=== PATIENT | male | born 1975 | race Caucasian/White ===

== ENCOUNTER 2016-07-03 20:32 | Emergency (ER) | payer BC ==
[2016-07-03] MEDS ORDERED: TETRACAINE HCL 0.5% OPH SOLN 2 ML OU ONE (20:52)
--- NOTE | 2016-07-03 20:58 | ER Document Report ---
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, stepped in and out of the room briefly without a welding mask or glasses on, and today it "all caught up with me", patient reports bilateral eye pain, unable to open his eyes , denies injury or pain elsewhere - Related Data Allergies/Adverse Reactions: morphine [Morphine] Allergy (Severe, Verified 05/07/12 09:35) Stopped breathing Past Medical History - General Information source: Patient - Social History Smoking Status: Current Every Day Smoker Frequency of alcohol use: None Drug Abuse: None Family History: Reviewed & Not Pertinent Pulmonary Medical History: Reports: Hx COPD Renal/ Medical History: Denies: Hx Peritoneal Dialysis Past Surgical History: Reports: Hx Cholecystectomy - Immunizations Hx Diphtheria, Pertussis, Tetanus Vaccination: No Review of Systems - Review of Systems Constitutional: No symptoms reported EENT: Eye pain, Tearing Cardiovascular: No symptoms reported Respiratory: No symptoms reported Gastrointestinal: No symptoms reported Genitourinary: No symptoms reported Male Genitourinary: No symptoms reported Musculoskeletal: No symptoms reported Skin: No symptoms reported Hematologic/Lymphatic: No symptoms reported Neurological/Psychological: No symptoms reported -: Yes All other systems reviewed and negative Physical Exam - Vital signs Vitals: Temp Pulse Resp BP Pulse Ox 98.1 F 81 20 154/103 H 99 07/03/16 20:38 07/03/16 20:38 07/03/16 20:38 07/03/16 20:38 07/03/16 20:38 Interpretation: Hypertensive - Notes Notes: - General General appearance: Appears well, Alert In distress: None - HEENT Head: Normocephalic, Atraumatic Eyes: Injected, tearing Conjunctiva: Normal Extraocular movements intact: Yes Eyelashes: Normal Pupils: PERRL - Respiratory Respiratory status: No respiratory distress - Cardiovascular Rhythm: Regular - Abdominal Inspection: Normal - Back Back: Normal - Extremities General upper extremity: Normal inspection General lower extremity: Normal inspection - Neurological Neuro grossly intact: Yes Orientation: AAOx4 [place] Coma Scale Eye Opening: Spontaneous [place] Coma Scale Verbal: Oriented [place] Coma Scale Motor: Obeys Commands [place] Coma Scale Total: 15 - Psychological Associated symptoms: Normal affect, Normal mood - Skin Skin Temperature: Warm Skin Moisture: Dry Skin Color: Normal Course - Re-evaluation Re-evalutation: 07/03/16 21:57 Patient reports acceptable relief of pain at this point in time, he is able to open his eyes and clearly see me, he was given instructions for follow-up, Polytrim eyedrops for home use, Vicodin dose pack, advised to return if symptoms worsen, patient acknowledges understanding and agreement with this plan - Vital Signs Vital signs: Temp Pulse Resp BP Pulse Ox 98.1 F 81 20 154/103 H 99 07/03/16 20:38 07/03/16 20:38 07/03/16 20:38 07/03/16 20:38 07/03/16 20:38 Discharge - Discharge Clinical Impression: Welders' flash Qualifiers: Laterality: bilateral Qualified Code(s): H16.133 - Photokeratitis, bilateral Condition: Stable Disposition: HOME, SELF-CARE Instructions: Tetanus Immunization Given ([facility]), [facility] ([facility]) Additional Instructions: Follow-up with an fall internship within the next week. Return to the emergency room immediately if symptoms worsen or any additional concerns. Prescriptions: Oxycodone HCl/Acetaminophen [Percocet 5-325 mg Tablet] 1 - 2 tab PO ASDIR PRN # 15 tablet PRN Reason:
[2016-07-03] MEDS ORDERED: POLYMYXIN B SULFATE/TMP OPH SOLN 10 ML OU ONE (21:08)
[2016-07-03] MEDS ORDERED: OXYCODONE-ACETAMINOPHEN 5-325 MG TABLET PO ONE (21:08)
[2016-07-03] MEDS ORDERED: DIPH/PERTUSS(ACELL)/TETANUS VAC/PF 0.5 ML SYR (>=10YO) IM ONE (21:08)
[2016-07-03] MEDS ORDERED: HYDROCODONE/ACETAMINOPHEN 5-325 MG 6 TAB/DSPK PO PRN (21:57)
[2016-07-03 22:28] VITALS: BP 136/88
== END 2016-07-03 22:28 | disposition home or self-care (01) ==
LOC: ER 20:32
DX: H16.133 Photokeratitis, bilateral (principal); H57.13 Ocular pain, bilateral; F17.210 Nicotine dependence, cigarettes, uncomplicated
CPT/HCPCS: 99283; 90715; J3490

== ENCOUNTER → 2018-12-23 | Outpatient (CLI) | payer BC ==
--- NOTE | 2018-12-23 09:22 | RADIOLOGY REPORT (SQ) ---
EXAM DESCRIPTION: MRI RT LOWER EXTREMITY WITHOUT COMPLETED DATE/TIME: 12/23/2018 8:46 am REASON FOR STUDY: M79.671 PAIN IN RIGHT FOOT M79.671 PAIN IN RIGHT FOOT COMPARISON: None. TECHNIQUE: Right ankle images acquired and stored on PACS. Multiplanar images include fat sensitive sequences as T1, fluid sensitive sequences as FST2/STIR, cartilage sensitive sequences as FSPD, and g radient echo sequences. LIMITATIONS: None. FINDINGS: There is trace fluid in the retrocalcaneal bursa on sagittal image 9, coronal image 26 and axial image 14. Along the deep aspect of the distal achilles tendon near its calcaneal attachment, focal increased si gnal is present from tendinopathy, measuring about 2.5 cm in greatest craniocaudad length. This is b est shown on coronal image 28, axial images 13-19, and sagittal image 9. Remainder of the visualized achilles tendon is intact. Please note that the musculotendinous junction is not included in the fi eld of view. No calcaneal marrow edema at the Achilles attachment is present. BONE MARROW: No alteration of signal to suggest marrow replacement or edema. No occult fracture. No l arge osteophytes. EFFUSIONS: No subtalar or tibiotalar effusions. No loose bodies. OSSEOUS ARTICULATIONS: Normal tibiotalar, subtalar, talonavicular and calcaneocuboid joints. TALAR DOME AND TIBIAL PLAFOND: Normal cartilage. No osteochondral defect. ACHILLES TENDON: As above TIBIALIS ANTERIOR TENDON: Intact without edema at the 1st MT attachment. TIBIALIS POSTERIOR TENDON: Normal morphology and no edema at the navicular attachment. No tendon barrientos th fluid. FLEXOR HALLUCIS LONGUS AND FLEXOR DIGITORUM TENDONS: Normal morphology and no tendon sheath fluid. No edema of the os trigonum. PERONEUS LONGUS AND BREVIS TENDON: Normal morphology and no tendon sheath fluid. No subluxation. ATFL, CFL, PTFL: Intact. No thickening or signal alteration. No josé-ligamentous fluid. DELTOID LIGAMENT: Visualized components intact. TARSAL TUNNEL: No masses. No muscle atrophy. SINUS TARSI: No fluid. No reactive marrow edema or erosions. PLANTAR FASCIA: No signal alteration or tear. ADJACENT SOFT TISSUES: No masses. OTHER: No other significant finding. IMPRESSION: Distal Achilles tendinopathy TECHNICAL DOCUMENTATION: JOB ID: [id number] [employer]- All Rights Reserved Reading location - IP/workstation name: [email or web address]
== END ==
LOC: RAD 08:09
PROVIDERS: ATTEND Physician Assistant
DX: M79.671 Pain in right foot (principal)

== ENCOUNTER 2019-08-07 13:01 | Emergency (ER) | payer BC ==
[2019-08-07] MEDS ORDERED: ASPIRIN 81 MG TABLET, CHEWABLE PO ONE (13:58)
--- NOTE | 2019-08-07 13:58 | ER Document Report ---
ED Medical Screen (RME) - General Chief Complaint: Chest Pain Stated Complaint: CHEST PAIN,DIFFICULTY BREATHING Time Seen by Provider: 08/07/19 13:53 Primary Care Provider: RICH ESTRADA PA [Primary Care Provider] - Follow up as needed Mode of Arrival: Wheelchair Information source: Patient Notes: 43-year-old male presented to ED for complaint of right-sided chest pain that goes all the way through to his back states the pain started on the right side now it is on both sides goes through to the back. He states he does not have a gallbladder. Chest pain started this morning shortness of breath started last night. He states it woke him up during the night he thought it was gas tried to go to work became very short of breath worse and is now in the emergency room. He states when he takes a deep breath the pain is a lot worse. He states he takes shallow breaths the pain is not quite as bad. He has not had any cough or congestion. Denies any recent travel. He states he has had calf and leg cramps but not pain. He is diagnosed with blood pressure. He states his dad had his first heart attack at 53. Smokes pack and a half a day states drinks maybe a sixpack a year no illicit drugs. I have greeted and performed a rapid initial assessment of this patient. A comprehensive ED assessment and evaluation of the patient, analysis of test results and completion of medical decision making process will be conducted by an additional ED providers. TRAVEL OUTSIDE OF THE [place] IN LAST 30 DAYS: No - Related Data Allergies/Adverse Reactions: morphine [Morphine] Allergy (Severe, Verified 08/07/19 13:52) Stopped breathing Past Medical History Pulmonary Medical History: Reports: Hx COPD Renal/ Medical History: Denies: Hx Peritoneal Dialysis Past Surgical History: Reports: Hx Cholecystectomy, Hx Orthopedic Surgery - back - Immunizations Immunizations up to date: No Hx Diphtheria, Pertussis, Tetanus Vaccination: No Physical Exam - Vital signs Vitals: Temp Pulse Resp BP Pulse Ox 98.7 F 96 19 157/94 H 95 08/07/19 13:12 08/07/19 13:12 08/07/19 13:12 08/07/19 13:12 08/07/19 13:12 Course - Vital Signs Vital signs: Temp Pulse Resp BP Pulse Ox 98.7 F 96 19 157/94 H 95 08/07/19 13:12 08/07/19 13:12 08/07/19 13:12 08/07/19 13:12 08/07/19 13:12 Doctor's Discharge - Discharge Referrals: RICH ESTRADA PA [Primary Care Provider] - Follow up as needed
[2019-08-07 14:32] LABS: ABSOLUTE BASOPHILS # (AUTO) 0.2 10^3/uL (0.0-0.2); ABSOLUTE EOSINOPHILS # (AUTO) 0.4 10^3/uL (0.0-0.6); ABSOLUTE LYMPHOCYTES (AUTO) 3.4 10^3/uL (0.5-4.7); ABSOLUTE MONOCYTES (AUTO) 1.2 10^3/uL (0.1-1.4); ABSOLUTE NEUT (AUTO) 8.7 10^3/uL (1.7-8.2); BASOPHILS % (AUTO) 1.2 % (0-2); EOSINOPHILS % (AUTO) 3.2 % (0-6); HEMATOCRIT 44.7 % (37.9-51.0); HEMOGLOBIN 15.5 g/dL (13.5-17.0); LYMPHOCYTES % (AUTO) 24.8 % (13-45); MEAN CORPUSCULAR HEMOGLOBIN 32.8 pg (27.0-33.4); MEAN CORPUSCULAR HGB CONC 34.6 g/dL (32.0-36.0); MEAN CORPUSCULAR VOLUME 95 fl (80-97); MONOCYTES % (AUTO) 8.5 % (3-13); PLATELET COUNT 240 10^3/uL (150-450); RED BLOOD COUNT 4.72 10^6/uL (4.35-5.55); RED CELL DISTRIBUTION WIDTH 13.6 % (11.5-14.0); SEGMENTED NEUTROPHILS % (AUTO) 62.3 % (42-78); TOTAL CELLS COUNTED % (AUTO) 100 %; WHITE BLOOD COUNT 13.9 10^3/uL (4.0-10.5)
--- NOTE | 2019-08-07 14:41 | RADIOLOGY REPORT (SQ) ---
EXAM DESCRIPTION: CHEST 2 VIEWS COMPLETED DATE/TIME: 08/07/2019 2:23 pm REASON FOR STUDY: Chest pain shortness of breath COMPARISON: PA and lateral views of the chest from 05/07/2012. EXAM PARAMETERS: NUMBER OF VIEWS: Two views. TECHNIQUE: PA and lateral views of the chest were obtained.. RADIATION DOSE: NA LIMITATIONS: none FINDINGS: LUNGS AND PLEURA: Acute asymmetric parenchymal opacities in the right lower lobe. The rig ht costophrenic sulcus is blunted. There is no pneumothorax. MEDIASTINUM AND HILAR STRUCTURES: No mediastinal or hilar contour abnormality. HEART AND VASCULAR STRUCTURES: The cardiac silhouette and pulmonary vasculature are within normal coello its. BONES: No acute findings. HARDWARE: None in the chest. OTHER: No other finding. IMPRESSION: Acute asymmetric parenchymal opacities in the right lower lobe. Correlate with clinical findings to exclude a pneumonia. TECHNICAL DOCUMENTATION: JOB ID: [id number] 2010 [employer]- All Rights Reserved Reading location - IP/workstation name: [email or web address]
[2019-08-07 14:44] LABS: ALBUMIN 4.1 g/dL (3.5-5.0); ALKALINE PHOSPHATASE 82 U/L (38-126); ANION GAP 8 (5-19); ASPARTATE AMINO TRANSFERASE 26 U/L (17-59); BILIRUBIN,DIRECT 0.1 mg/dL (0.0-0.4); BILIRUBIN,TOTAL 0.8 mg/dL (0.2-1.3); BLOOD UREA NITROGEN 14 mg/dL (7-20); CALCIUM 9.1 mg/dL (8.4-10.2); CARBON DIOXIDE 26 mmol/L (22-30); CHLORIDE 104 mmol/L (98-107); GLUCOSE 155 mg/dL (75-110); POTASSIUM 3.9 mmol/L (3.6-5.0); TOTAL PROTEIN 7.5 g/dL (6.3-8.2)
--- NOTE | 2019-08-07 16:19 | ER Document Report ---
Entered by GAGE MEAD SCRIBE 08/07/19 1554 Acting as scribe for:TESSA VERA, ED General - General Chief Complaint: Chest Pain Stated Complaint: CHEST PAIN,DIFFICULTY BREATHING Time Seen by Provider: 08/07/19 13:53 Primary Care Provider: RICH ESTRADA PA [Primary Care Provider] - Follow up as needed Mode of Arrival: Wheelchair Information source: Patient Notes: This 43-year-old male patient presents to the emergency department today with complaints of pain that radiates from his left upper quadrant across the top of his abdomen that began at 0300 this morning. Patient states that this pain has become worse since onset. Patient states his pain is exacerbated with breathing or with movement of his torso. Patient also mentions bilateral calf pain. TRAVEL OUTSIDE OF THE [place] IN LAST 30 DAYS: No - Related Data Allergies/Adverse Reactions: morphine [Morphine] Allergy (Severe, Verified 08/07/19 13:52) Stopped breathing Home Medications: ambien Past Medical History - General Information source: Patient - Social History Smoking Status: Current Every Day Smoker Cigarette use (# per day): Yes Chew tobacco use (# tins/day): No Frequency of alcohol use: None Drug Abuse: None Lives with: Family Family History: CAD, Reviewed & Not Pertinent Patient has suicidal ideation: No Patient has homicidal ideation: No - Past Medical History Cardiac Medical History: Reports: Hx Hypertension Pulmonary Medical History: Reports: Hx COPD Past Surgical History: Reports: Hx Cholecystectomy, Hx Orthopedic Surgery - back - Immunizations Immunizations up to date: No Hx Diphtheria, Pertussis, Tetanus Vaccination: No Review of Systems - Review of Systems Constitutional: denies: Fever EENT: No symptoms reported Cardiovascular: No symptoms reported Respiratory: See HPI, Hurts to breathe, Short of breath Gastrointestinal: See HPI, Abdominal pain. denies: Diarrhea, Nausea, Vomiting Genitourinary: No symptoms reported Male Genitourinary: No symptoms reported Musculoskeletal: No symptoms reported Skin: No symptoms reported Hematologic/Lymphatic: No symptoms reported Neurological/Psychological: No symptoms reported -: Yes All other systems reviewed and negative Physical Exam - Vital signs Vitals: Temp Pulse Resp BP Pulse Ox 98.7 F 96 19 157/94 H 95 08/07/19 13:12 08/07/19 13:12 08/07/19 13:12 08/07/19 13:12 08/07/19 13:12 - Notes Notes: Physical Exam: General: Alert, appears uncomfortable. HEENT: Normocephalic. Atraumatic. PERRL. Extraocular movements intact. Oropharynx clear. Neck: Supple. Non-tender. Respiratory: No respiratory distress. Clear and equal breath sounds bilaterally. Cardiovascular: Regular rate and rhythm. Abdominal: Mild to moderate right upper quadrant, epigastric, and left upper quadrant tenderness with palpation. Obese. No distension. Normal Bowel Sounds. Back: No gross abnormalities. Extremities: Moves all four extremities. Upper extremities: Normal inspection. Normal ROM. Lower extremities: Normal inspection. No edema. Normal ROM. Neurological: Normal cognition. AAOx4. Normal speech. Psychological: Normal affect. Normal Mood. Skin: Warm. Dry. Normal color. Course - Re-evaluation Re-evalutation: 08/07/19 18:51 MDM 43 year old with cough intermittently for several days and cough that is nonproductive. CXR wiht RLL infiltrate. Considered infarct/ due to this and small effusion. Unfortunatley the Ct was not diagnostic. Sono of legs is negative except perhaps Bakers cyst. He certainly has some Pleuritic pain and the sat is not normal in this nice man. Mid 90's here with me in the room. He likely has LOIS but has refused the test to this point. We discussed inpt treatment and he is opposed to this at this time. We will have him follow up with PCP tomorrow and I discussed return precautions. No work for the next few days. - Vital Signs Vital signs: Temp Pulse Resp BP Pulse Ox 98.7 F 96 20 150/103 H 93 08/07/19 13:12 08/07/19 13:12 08/07/19 17:18 08/07/19 16:57 08/07/19 17:18 - Laboratory Result Diagrams: 08/07/19 14:09 08/07/19 14:09 Laboratory results interpreted by me: 08/07/19 08/07/19 08/07/19 14:09 14:09 14:09 WBC 13.9 H Absolute Neuts (auto) 8.7 H D-Dimer 1.95 H Glucose 155 H - Diagnostic Test Radiology reviewed: Image reviewed, Reports reviewed - EKG Interpretation by Me EKG shows normal: Sinus rhythm Rate: Normal Rhythm: NSR [place]/QRS: Left axis deviation - NSR Nl [place] no st elevation or depression poor r wave progression my interpretation. Discharge - Discharge Clinical Impression: Pleurisy with effusion CAP (community acquired pneumonia) Qualifiers: Laterality: right Lung location: lower lobe of lung Qualified Code(s): J18.9 - Pneumonia, unspecified organism Condition: Good Disposition: HOME, SELF-CARE Instructions: Chest Wall Pain ([facility]), Pleurisy ([facility]), Pneumonia ([facility]) Additional Instructions: See your doctor in follow up tomorrow. Rest. Please return here for any problems or any concerns including but not limited to increasing pain in your chest, coughing up blood or other concerns. Take your medicine as directed. Prescriptions: Amoxicillin/Potassium Clav [Augmentin 875-125 Tablet] 1 tab PO BID #20 tab Forms: Return to Work Referrals: RICH ESTRADA PA [Primary Care Provider] - Follow up as needed I personally performed the services described in the documentation, reviewed and edited the documentation which was dictated to the scribe in my presence, and it accurately records my words and actions.
[2019-08-07] MEDS ORDERED: CEFTRIAXONE 1 GM/D5W RTU 1 GM/50 ML RTUPB IV ONE (16:29)
[2019-08-07] MEDS ORDERED: ONDANSETRON HCL INJ/PF 4 MG/2 ML SDV IV ONE ×2 (16:41→18:07)
[2019-08-07] MEDS ORDERED: FENTANYL CITRATE INJ/PF 100 MCG/2 ML AMPUL IV ONE ×2 (16:41→18:07)
--- NOTE | 2019-08-07 17:40 | RADIOLOGY REPORT (SQ) ---
EXAM DESCRIPTION: CTA CHEST COMPLETED DATE/TIME: 08/07/2019 5:20 pm REASON FOR STUDY: chest pain/ pleurisy COMPARISON: AP chest 08/07/2019 TECHNIQUE: CT scan of the chest performed using helical scanning technique with dynamic intravenous contrast injection. Images reviewed with lung, soft tissue and bone windows. Reconstructed coronal and sagittal MPR images reviewed. Additional 3 dimensional post-processing performed to develop Maximal Intensity Projection images (VA P). All images stored on PACS. All CT scanners at this facility use dose modulation, iterative reconstruction, and/or weight based d osing when appropriate to reduce radiation dose to as low as reasonably achievable (ALARA). [facility]: Dose Right [facility]: CareDose [facility]: Dose Right [facility]: Teradose 4D [facility]: A-TEX CONTRAST TYPE AND DOSE: contrast/concentration: Isovue 350.00 mg/ml; Total Contrast Delivered: 170.2 ml; Total Saline Delivered: 60.0 ml Contrast bolus adequate for pulmonary arteries and aorta. RENAL FUNCTION: GFR > 60. RADIATION DOSE: CT Rad equipment meets quality standard of care and radiation dose reduction [employer] ues were employed. CTDIvol: 28.1 - 65.6 mGy. DLP: 3835 mGy-cm. . LIMITATIONS: Poor opacification of pulmonary arteries. Patient was scanned twice. Limitations of t his study was discussed with Dr. Yousif, 1715 hours 08/07/2019 FINDINGS: LUNGS AND PLEURA: Trace right pleural effusion is new patchy airspace disease at the right carotid space, atelectasis versus pneumonia versus pulmonary infarct. Left lung grossly clear. No left pleural effusion. No pneumothorax. AORTA AND GREAT VESSELS: No aneurysm or thoracic aortic dissection HEART: No pericardial effusion. No significant coronary artery calcifications. PULMONARY ARTERIES: Suboptimal contrast bolus. Pulmonary embolus could not be excluded. Findings di scussed with the emergency room attending physician HILAR AND MEDIASTINAL STRUCTURES: No identified masses or abnormal nodes. HARDWARE: None in the chest. UPPER ABDOMEN: Fatty liver. Hiatal hernia. Clips post cholecystectomy THYROID AND OTHER SOFT TISSUES: No masses. No adenopathy. BONES: No acute or significant finding. 3D MIPS: Confirm above findings. OTHER: No other significant finding. IMPRESSION: Nondiagnostic study for acute pulmonary embolus. There is consolidation and just above the right hemidiaphragm with small right pleural effusion. Dif ferential pneumonia versus atelectasis versus pulmonary infarct. Findings and limitations of this st udy discussed the emergency room attending physician. COMMENT: Quality ID # [id number]: Final reports with documentation of one or more dose reduction techniques (e.g., Automated exposure control, adjustment of the mA and/or kV according to patient size, use of iterative reconstruction technique) TECHNICAL DOCUMENTATION: JOB ID: [id number] 2010 [employer]- All Rights Reserved Reading location - IP/workstation name: [email or web address]
--- NOTE | 2019-08-07 18:34 | EKG REPORT ---
SEVERITY:- ABNORMAL ECG - SINUS RHYTHM PROBABLE LEFT ATRIAL ABNORMALITY BORDERLINE LEFT AXIS DEVIATION NONSPECIFIC T ABNORMALITIES, LATERAL LEADS : Confirmed by: Daniel Mcfarland 07-Aug-2019 18:34:18
[2019-08-07] MEDS ORDERED: KETOROLAC TROMETHAMINE INJ/PF 30 MG/1 ML SDV IV ONE (18:57)
[2019-08-07] MEDS ORDERED: HYDROCODONE/ACETAMINOPHEN 5-325 MG (6 TAB/ER DISP) PO PRN (18:58)
[2019-08-07 19:09] VITALS: BP 147/90
--- NOTE | 2019-08-08 14:01 | XCELERA REPORT ---
[address] [place] [facility] [address] Lower Extremity Venous Evaluation Procedure: Color flow and duplex imaging bilaterally of the veins of the lower extremities as well as the Common Femoral veins. Right Sided Venous Evaluation A large round, echo lucent area, non vascular is seen, in Popliteal fossa. Normal vessel filling wall to wall, compression and augmentation as well as Colour flow down to the infrageniculate veins. Left Sided Venous Evaluation Normal vessel filling wall to wall, compression and augmentation as well as Colour flow down to the infrageniculate veins. Interpretation Summary No duplex evidence of DVT or obstruction in the bilateral lower extremities. A large right Popliteal cyst is noted. Name: TEDDY ROQUE Age: 43 yrs Gender: Male : 1975 Patient Status: Emergency Patient Location: ER Study Date: 08/07/2019 06:05 PM Reason For Study: sob/ leg pain Ordering Physician: TESSA VERA Performed By: Nupur Chahal : TESSA VERA > Gordon Santana
== END 2019-08-07 19:19 | disposition home or self-care (01) ==
LOC: ER 13:01
DX: J18.9 Pneumonia, unspecified organism (principal); J44.0 Chronic obstructive pulmonary disease with (acute) lower respiratory infection; J90 Pleural effusion, not elsewhere classified; R07.1 Chest pain on breathing; R05 Cough; R06.02 Shortness of breath; R10.12 Left upper quadrant pain; R10.812 Left upper quadrant abdominal tenderness; R10.811 Right upper quadrant abdominal tenderness; R10.813 Right lower quadrant abdominal tenderness; M79.661 Pain in right lower leg; M79.662 Pain in left lower leg; I10 Essential (primary) hypertension; F17.210 Nicotine dependence, cigarettes, uncomplicated; Z88.6 Allergy status to analgesic agent; Z88.5 Allergy status to narcotic agent
CPT/HCPCS: 93005; 96376; 99285; 96375; 96365; 36415; 87040; 85025; 80053; 84484; 85379; 93970 ×2; 71046; 71275; 93010; J3010; J1885; J2405; J0696